=== PATIENT | female | born 1950 | race Caucasian/White ===

== ENCOUNTER 2016-03-17 09:32 | Outpatient (CLI) | payer OTHER ==
--- NOTE | 2016-03-17 10:42 | DIAGNOSTIC IMAGING REPORT ---
PROCEDURE: CT LOW-DOSE LUNG CA SCREENING CLINICAL INDICATION: LUNG CA SCREENING TECHNIQUE: Low-dose helical CT images of the lungs without contrast were obtained and reconstructed at 2.5 mm intervals. MIP reformations in coronal and sagittal planes were created. Radiation dose 1.38 mGy. COMPARISON: Oldest available comparison: None FINDINGS: NODULES: There are no pulmonary nodules. OTHER LUNG FINDINGS: Minor subpleural fibrosis and bibasilar scarring. There is dependent atelectasis posteriorly in both lung bases. AIRWAY: Branches normally without narrowing or endobronchial nodule. PLEURA: No effusions, thickening, or pneumothorax. AORTA AND GREAT VESSELS: Normal caliber, mild atherosclerotic calcification. PULMONARY ARTERIES: Normal. . HEART AND PERICARDIUM: Normal size without effusion, thickening. LYMPH NODES: No enlarged nodes visible. THORACIC SPINE: No suspicious lesion. Mild degenerative changes. CHEST WALL: Normal. VISUALIZED UPPER ABDOMEN: Normal. IMPRESSION: 1. No evidence of pulmonary nodules into 2. Minor subpleural fibrosis and bibasilar scarring 3. Category 1. Negative. Recommend annual screening with LDCT in [address] scans at this facility use dose modulation, iterative reconstruction, and/or weight-based dosing when appropriate to reduce radiation dose to as low as reasonably achievable.
== END 2016-03-17 23:00 ==
LOC: CT SRH 09:32
DX: Z12.2 Encounter for screening for malignant neoplasm of respiratory organs (principal); F17.200 Nicotine dependence, unspecified, uncomplicated